=== PATIENT | male | born 1935 | race Asian ===

== ENCOUNTER 2016-07-14 07:59 | Emergency (ER) | payer MEDICARE, OTHER ==
--- NOTE | ~2016-07-14 | EKG ---
PATIENT: JOSE MARIE UNIT #: [id number] Ventricular Rate: 67 BPM Atrial Rate: 67 BPM P-R Interval: 178 ms QRS Duration: 98 ms Q-T Interval: 378 ms QTC Calculation(Bezet): 399 ms P [place]: 37 degrees Calculated R [place]: 38 degrees Calculated T [place]: 125 degrees Diagnosis Line: Normal sinus rhythm Diagnosis Line: Nonspecific T wave abnormality Diagnosis Line: Otherwise normal ECG Diagnosis Line: When compared with ECG of 28-JUN-2015 05:59, Diagnosis Line: NM interval has decreased Diagnosis Line: Vent. rate has decreased BY 39 BPM Diagnosis Line: Confirmed by GERARDO PULIDO MD ([id number]) on 07/14/2016 Diagnosis Line: 11:04:06 PM INTERPRETING MD: TESS HOWARD
--- NOTE | ~2016-07-14 | CR72 ---
[facility] A Service of [facility] RADIOLOGY TEXT RESULTS PATIENT: JOSE MARIE LOCATION: [facility] : 31 UNIT #: [id number] AGE: [address]: Cory Bustamante MD SEX: M ORDER DR: [id number] [facility] [address] [place], [place] [address] [id number] E MR#: [id number] Acc #: [id number] NAME: JOSE MARIE : 1935 SEX: M STUDY DATE/TIME: 07/14/2016 9:56 UNIT: [facility] ROOM: STUDY DESCRIPTION: CR Chest Single View Portable Attending Physician: Cory Bustamante M.D. Referring Physician: Self Referral-Refer Use Only Ordering Physician: Cory Bustamante M.D. Primary Care Physician: Niko Parsons M.D. MEDICAL IMAGING REPORT This report is preliminary unless electronic signature is present EXAM Portable chest 07/14/2016 INDICATION Chest pain today. History of coronary artery disease. FINDINGS AP portable chest is compared with 06/28/2015. Cardiac and mediastinal contours are within normal limits. Patient is status post CABG. Postoperative changes are noted in the right [id number] lung. The lungs otherwise are clear. No pneumothorax. IMPRESSION Postop changes involving the right lung in addition to CABG. No acute findings in the chest. Dictated by... Dylon Canales Jr., M.D. THIS IS AN ELECTRONICALLY VERIFIED REPORT Dylon Canales Jr., M.D. at 07/14/2016 4:48 PM JEYSON/kathy TD: 07/14/2016 12:42 JOB #: [id number] MEDICAL IMAGING REPORT Page 1 of 1 COPY
[~2016-07-14 07:59] MED LIST: ACCOLATE20 MG PO; ADVAIR 2501 DISK W/D PO; ADVAIR INH; ALBUTEROL MININEB NEB; ALBUTEROL0.83 MG/ML IH; AMLODIPINE-BEN1 EAC1 PO; AMLODIPINE-BENA1 CA1 PO; ASPIRIN PO; ASPIRIN81 M1 PO; ASPIRIN81 M2 PO; ASPIRIN81 MG PO; ATARAX PO; AYR SALINE NS; BENAZEPRIL HCL10 M1 PO; BENAZEPRIL HCL10 MG PO; BENZONATATE PO; BUMETANIDE1 MG PO; BUMEX PO; BUMEX1 MG PO; CALAN80 MG PO; CARVEDILOL6.25 MG PO; COMBIVENT INH14.7 GM INH; DUONEB 2.5-0.5 M3 ML NEB; FERREX PO; FLEXERIL10 M1 PO; IPRAT-ALBUT 0.5-3 ML IH; KCL PO; LASIX20 MG PO; LEVAQUIN PO; LIPITOR40 MG PO; LODINE PO; LOPRESSOR PO; LORTAB 5/500 TA1 TA1 PO; LOTREL 10/20 MG1 CAP PO; LOTREL 5/10 MG1 CAP PO; LOTREL 5/20 MG1 CAP PO; NAPROXEN PO; NORVASC PO; NOVOLOG100 U/ML SUBQ; NYSTATIN5 ML PO; OMEPRAZOLE40 M1 PO; PACERONE PO; PATIENT'S PHARMACY; PHENOL-SODIUM180 ML MM; PREDNISONE PO; PREDNISONE10 MG PO; PREDNISONE5 M1; PROAIR HFA8.5 GM IH; PROTONIX PO; SIMVASTATIN40 MG PO; SYMBICORT INH; VIBRAMYCIN100 M1 PO; ZANTAC PO; ZITHROMAX500 MG PO; ZOCOR PO; proair
[2016-07-14 08:01] LABS: BASOPHIL# 0.1 X10e3 (0-0.3); BASOPHIL% 0.7 % (0-2.5); EOSINOPHIL# 0.9 X10e3 (0-0.7); EOSINOPHIL% 7.4 % (0.0-7.0); HEMOGLOBIN 13.3 gm/dL (13.0-16.0); LYMPHOCYTE# 1.6 X10e3 (1.0-3.5); LYMPHOCYTE% 13.2 % (17.0-45.0); MEAN CELL VOLUME 79.2 FL (83-96); MEAN CORPUSCULAR HEMOGLOBIN 25.1 PG (28-34); MEAN CORPUSCULAR HGB CONC 31.7 g/dL (30-36); MONOCYTE% 8.1 % (3.0-12.0); NEUTROPHIL# 8.5 X10e3 (1.5-7.1); NEUTROPHIL% 70.6 % (40-75); PLATELET COUNT 201 X10e3 (140-420); RED CELL DISTRIBUTION WIDTH 15.3 % (11.0-15.5); WHITE BLOOD COUNT 12.1 X10e3 (4.0-10.5)
[2016-07-14 08:11] LABS: DIFF IND NO
[2016-07-14 08:15] LABS: PARTIAL THROMBOPLASTIN TIME 27.5 SECONDS (23.5-31.3); PROTHROMBIN TIME (PATIENT) 10.2 SECONDS (9.6-11.5)
[2016-07-14 08:16] LABS: POC - CKMB 2.1 ng/mL (0.0-7.9); POC - TROPONIN <0.05 ng/mL (<=0.05)
[2016-07-14 08:32] LABS: ALBUMIN SERUM 4.1 g/dL (3.5-5.0); BILIRUBIN, DIRECT 0.1 mg/dL (0.0-0.2); BILIRUBIN,INDIRECT 0.7 mg/dL (0.0-0.9); BILIRUBIN,TOTAL 0.8 mg/dL (0.2-2.0); CALCIUM SERUM 8.9 mg/dL (8.4-10.2); CREATININE SERUM 1.5 mg/dL (0.6-1.4); GLOM FILT RATE Estimated 42.5 mL/min (>60); POTASSIUM 3.9 mmol/L (3.5-5.1); PROTEIN TOTAL SERUM 7.5 g/dL (6.0-8.3)
[2016-07-14 10:33] LABS: POC - CKMB 1.7 ng/mL (0.0-7.9); POC - TROPONIN <0.05 ng/mL (<=0.05)
== END 2016-07-14 11:35 | disposition home or self-care (01) ==
LOC: CED 07:59
PROVIDERS: Emergency Medicine
DX: J40 Bronchitis, not specified as acute or chronic (principal); I25.10 Atherosclerotic heart disease of native coronary artery without angina pectoris; I10 Essential (primary) hypertension; E78.5 Hyperlipidemia, unspecified; Z95.1 Presence of aortocoronary bypass graft
CPT/HCPCS: 36415; 71010; 80048; 80076; 82553; 83880; 84484; 85025; 85610; 85730; 93005; 94640; 99284